=== PATIENT | female | born 1935 | race Caucasian/White ===

== ENCOUNTER 2022-01-22 03:26 | Emergency (ER) | payer MEDICARE, BC ==
[2022-01-22] MEDS ORDERED: Diphenoxylate HCl/Atropine Tablet ONE (04:02)
[2022-01-22 05:44] LABS: Bilirubin Neg (Negative); Blood, Urine 25 (Negative); Clarity Clear (Clear); Glucose, Urine (Dipstick) Normal (Negative); Ketone, Urine Negative (Negative); Leukocyte Negative (Negative); Nitrite Negative (Negative); Protein, Urine (Dipstick) Negative (Neg-Trace); Urobilinogen Normal mg/dL (Less than 2)
[2022-01-22 06:00] LABS: RBC/HPF 0-3 HPF (0-3); Squamous Epithelial None Seen HPF (0-3); WBC/HPF 0-3 HPF (0-3)
[2022-01-22 06:01] LABS: Bacteria/HPF Rare-Few HPF (None Seen)
[2022-01-22 06:08] LABS: #Monocytes 0.5 10x3/uL (0.0-1.1); %Basophils 0.2 % (0.0-2.0); %Lymphocytes 13.6 % (18.0-47.0); %Monocytes 10.1 % (0.0-10.0); %Neutrophils 75.9 % (40.0-75.0); Hemoglobin 11.5 g/dL (12.0-15.5); Mean Corpuscular HGB CONC 33.5 g/dL (32.0-36.0); Mean Corpuscular Hemoglobin 29.9 pg (27.0-33.0); Mean Corpuscular Volume 89.1 fl (81.6-98.3); Mean Platelet Volume 10.4 fl (7.4-10.4); Platelet Count 143 10x3/uL (150-450); RBC Distribution Width 13.7 % (11.5-14.5); Red Blood Cell (RBC) Count 3.85 10x6/uL (3.90-5.03); White Blood Cell (WBC) Count 5.2 10x3/uL (3.5-10.5)
[2022-01-22 06:31] LABS: ALT (SGPT) 14 U/L (8-55); AST (SGOT) 25 U/L (5-34); Alkaline Phosphatase 58 U/L (40-110); Anion Gap 15 mmol/L (10-20); BUN (Urea Nitrogen) 17 mg/dL (9.8-20.1); Bilirubin, Total 0.6 mg/dL (0.2-1.2); Calc. Creatinine Clearance 0 mL/min (70-130); Calcium 8.8 mg/dL (7.8-10.44); Carbon Dioxide 29 mmol/L (23-31); Chloride 98 mmol/L (98-107); Estimated GFR 85; Globulin 2.2 g/dL (2.4-3.5); Glucose 102 mg/dL (83-110); Potassium 3.5 mmol/L (3.5-5.1); Protein, Total 6.2 g/dL (5.8-8.1); Sodium 138 mmol/L (136-145)
== END 2022-01-22 06:40 | disposition home or self-care (01) ==
LOC: CSHERS 03:26
DX: S70.02XA Contusion of left hip, initial encounter (principal); S70.01XA Contusion of right hip, initial encounter; R19.7 Diarrhea, unspecified; E03.9 Hypothyroidism, unspecified; K21.9 Gastro-esophageal reflux disease without esophagitis; I10 Essential (primary) hypertension; Z79.899 Other long term (current) drug therapy; W19.XXXA Unspecified fall, initial encounter
CPT/HCPCS: 36415; 51701; 72170; 80053; 81003; 81015; 85025; 87086

== ENCOUNTER 2022-01-27 09:03 | Inpatient (IN) | payer MEDICARE, BC ==
[2022-01-27 09:38] LABS: #Monocytes 0.5 10x3/uL (0.0-1.1); #Neutrophils 3.5 10x3/uL (1.5-8.4); %Basophils 0.2 % (0.0-2.0); %Eosinophils 0.3 % (0.0-6.0); %Lymphocytes 29.5 % (18.0-47.0); %Monocytes 8.2 % (0.0-10.0); %Neutrophils 61.5 % (40.0-75.0); Hemoglobin 11.4 g/dL (12.0-15.5); Mean Corpuscular HGB CONC 32.3 g/dL (32.0-36.0); Mean Corpuscular Hemoglobin 28.4 pg (27.0-33.0); Mean Corpuscular Volume 87.8 fl (81.6-98.3); Mean Platelet Volume 10.2 fl (7.4-10.4); Platelet Count 189 10x3/uL (150-450); RBC Distribution Width 13.2 % (11.5-14.5); Red Blood Cell (RBC) Count 4.02 10x6/uL (3.90-5.03); White Blood Cell (WBC) Count 5.7 10x3/uL (3.5-10.5)
[2022-01-27 09:45] LABS: PTT 24.8 sec (22.0-33.0); Prothrombin Time 10.6 sec (9.5-12.1)
[2022-01-27 09:54] LABS: Bilirubin Neg (Negative); Blood, Urine 50 (Negative); Clarity Cloudy (Clear); Glucose, Urine (Dipstick) Normal (Negative); Ketone, Urine Negative (Negative); Leukocyte 500 (Negative); Nitrite Positive (Negative); Protein, Urine (Dipstick) 30 mg/dl (Neg-Trace); Urobilinogen Normal mg/dL (Less than 2)
[2022-01-27 09:55] LABS: ALT (SGPT) 9 U/L (8-55); AST (SGOT) 20 U/L (5-34); Alkaline Phosphatase 57 U/L (40-110); Anion Gap 15 mmol/L (10-20); BUN (Urea Nitrogen) 17 mg/dL (9.8-20.1); Bilirubin, Total 0.9 mg/dL (0.2-1.2); CK (CPK) 33 U/L (29-168); Calc. Creatinine Clearance 0 mL/min (70-130); Carbon Dioxide 28 mmol/L (23-31); Chloride 98 mmol/L (98-107); Estimated GFR 75; Glucose 113 mg/dL (83-110); Magnesium 1.6 mg/dL (1.6-2.6); Potassium 3.2 mmol/L (3.5-5.1); Sodium 138 mmol/L (136-145)
[2022-01-27 10:02] LABS: WBC/HPF Greater Than 50 HPF (0-3)
[2022-01-27 10:03] LABS: Bacteria/HPF 4+ HPF (None Seen); Squamous Epithelial 0-3 HPF (0-3)
[2022-01-27] MEDS ORDERED: Diazepam 5 MG TAB ONE (10:09)
[2022-01-27] MEDS ORDERED: Ondansetron PF 4 MG/2 ML Vial ONE (10:10)
[2022-01-27] MEDS ORDERED: cefTRIAXone\\ROCEPHIN 1 GM VIAL ONE (10:51)
[2022-01-27] MEDS ORDERED: Ondansetron ODT 4 MG TAB PO PRN (12:23)
[2022-01-27] MEDS ORDERED: Ondansetron PF 4 MG/2 ML Vial IVP PRN (12:23)
[2022-01-27] MEDS ORDERED: Senokot S 8.6-50 MG TAB PO PRN (12:23)
[2022-01-27] MEDS ORDERED: Acetaminophen 325 MG TAB PO PRN (12:23)
[2022-01-27 12:44] LABS: Digoxin 0.55 ng/mL (0.8-2.0); Magnesium 1.6 mg/dL (1.6-2.6)
[2022-01-27] MEDS ORDERED: Potassium Chloride 20 MEQ TAB PO SCH ×2 (13:00→18:48)
[2022-01-27 13:43] VITALS: BMI 21.9
[2022-01-27] MEDS ORDERED: Magnesium 2 GM/50 ML(in water) 2 GM in Premix Bag 1 BAG IVPB SCH (14:17)
[2022-01-27 15:41] LABS: SARS-CoV-2 NAA Rapid Test DETECTED (NotDetected)
[2022-01-27 18:23] LABS: Magnesium 2.1 mg/dL (1.6-2.6); Potassium 3.2 mmol/L (3.5-5.1)
[2022-01-27] MEDS ORDERED: Apixaban 2.5 MG TAB PO SCH (21:00)
[2022-01-28 04:08] LABS: #Monocytes 0.6 10x3/uL (0.0-1.1); #Neutrophils 2.6 10x3/uL (1.5-8.4); %Basophils 0.2 % (0.0-2.0); %Eosinophils 0.7 % (0.0-6.0); %Lymphocytes 43.5 % (18.0-47.0); %Monocytes 10.7 % (0.0-10.0); %Neutrophils 44.6 % (40.0-75.0); Hemoglobin 11.6 g/dL (12.0-15.5); Mean Corpuscular Hemoglobin 29.7 pg (27.0-33.0); Mean Corpuscular Volume 87.2 fl (81.6-98.3); Mean Platelet Volume 10.4 fl (7.4-10.4); Platelet Count 173 10x3/uL (150-450); RBC Distribution Width 13.3 % (11.5-14.5); Red Blood Cell (RBC) Count 3.91 10x6/uL (3.90-5.03); White Blood Cell (WBC) Count 5.7 10x3/uL (3.5-10.5)
[2022-01-28 04:17] LABS: Anion Gap 12 mmol/L (10-20); BUN (Urea Nitrogen) 11 mg/dL (9.8-20.1); Calc. Creatinine Clearance 57 mL/min (70-130); Carbon Dioxide 32 mmol/L (23-31); Chloride 99 mmol/L (98-107); Estimated GFR 80; Glucose 90 mg/dL (83-110); Potassium 3.7 mmol/L (3.5-5.1); Sodium 139 mmol/L (136-145)
[2022-01-28] MEDS ORDERED: Polyethylene Glycol 3350 17 GM Packet PO PRN (07:51)
[2022-01-28] MEDS ORDERED: Simethicone Chewable 80 MG TAB PO PRN (07:54)
[2022-01-28] MEDS ORDERED: Digoxin 0.125 MG TAB PO SCH (09:00)
[2022-01-28] MEDS ORDERED: Apixaban 2.5 MG TAB PO SCH (09:00)
[2022-01-28] MEDS ORDERED: Levothyroxine Sodium 112 MCG TAB PO SCH (09:00)
[2022-01-28] MEDS ORDERED: Zinc Sulfate 220 MG CAP PO SCH (09:00)
[2022-01-28] MEDS ORDERED: Ascorbic Acid 500 mg Chewable Tablet PO SCH (09:00)
[2022-01-28] MEDS ORDERED: cefTRIAXone\\ROCEPHIN 1 GM in Sodium Chloride 0.9% 100 ML IVPB SCH (11:00)
[2022-01-28 12:15] VITALS: TEMP 97.6
[2022-01-28 14:01] VITALS: BP 144/66
[2022-01-29] MEDS ORDERED: Levothyroxine Sodium 112 MCG TAB PO SCH (06:00)
== END 2022-01-28 15:00 | disposition home or self-care (01) | DRG 689 ==
LOC: CSHERS 09:03 → CSHTELE 12:44
PROVIDERS: ADMIT Internal Medicine; ATTEND Internal Medicine
PROC: 8E0ZXY6 Isolation (ICD-10-PCS; principal; 2022-01-27)
DX: N30.00 Acute cystitis without hematuria (principal); U07.1 COVID-19; I48.20 Chronic atrial fibrillation, unspecified; E03.9 Hypothyroidism, unspecified; K21.9 Gastro-esophageal reflux disease without esophagitis; I10 Essential (primary) hypertension; F03.90 Unspecified dementia, unspecified severity, without behavioral disturbance, psychotic disturbance, mood disturbance, and anxiety; E87.6 Hypokalemia; D64.9 Anemia, unspecified; Z79.01 Long term (current) use of anticoagulants; Z79.899 Other long term (current) drug therapy; Z95.0 Presence of cardiac pacemaker
CPT/HCPCS: 51701; 70450; 71045; 74018; 80048; 80053; 80162; 81003; 81015; 82550; 83605; 83615; 83735; 84443; 84484; 85025; 85610; 85730; 86140; 86850; 86900; 86901; 87077; 87086; 87186; 93005; 94760; 96365; 96375; J0696; J2405; J3475; J3490; U0002

== ENCOUNTER 2022-01-31 05:04 | Inpatient (IN) | payer MEDICARE, BC ==
[2022-01-31] MEDS ORDERED: Morphine 2 MG/ML VIAL ONE (05:28)
[2022-01-31] MEDS ORDERED: Promethazine HCl 25 MG/ML VIAL ONE (05:28)
[2022-01-31] MEDS ORDERED: Pantoprazole 40 MG VIAL ONE ×2 (06:12→08:10)
[2022-01-31 06:33] LABS: ALT (SGPT) 12 U/L (8-55); AST (SGOT) 21 U/L (5-34); Alkaline Phosphatase 59 U/L (40-110); Anion Gap 18 mmol/L (10-20); BUN (Urea Nitrogen) 16 mg/dL (9.8-20.1); Bilirubin, Total 1.1 mg/dL (0.2-1.2); CK (CPK) 37 U/L (29-168); Calc. Creatinine Clearance 0 mL/min (70-130); Calcium 9.2 mg/dL (7.8-10.44); Carbon Dioxide 34 mmol/L (23-31); Chloride 93 mmol/L (98-107); Estimated GFR 85; Globulin 2.1 g/dL (2.4-3.5); Glucose 171 mg/dL (83-110); Protein, Total 6.1 g/dL (5.8-8.1); Sodium 142 mmol/L (136-145)
[2022-01-31 06:35] LABS: Hemoglobin 12.2 g/dL (12.0-15.5); Mean Corpuscular HGB CONC 33.6 g/dL (32.0-36.0); Mean Corpuscular Hemoglobin 29.3 pg (27.0-33.0); Mean Corpuscular Volume 87.1 fl (81.6-98.3); Platelet Count 222 10x3/uL (150-450); Red Blood Cell (RBC) Count 4.17 10x6/uL (3.90-5.03); White Blood Cell (WBC) Count 6.9 10x3/uL (3.5-10.5)
[2022-01-31 06:43] LABS: Potassium 2.9 mmol/L (3.5-5.1)
[2022-01-31 06:45] LABS: Lipase 1145 U/L (8-78)
[2022-01-31] MEDS ORDERED: NS 0.9% w/ 40 MEQ KCL 1,000 ML IV ONE (06:48)
[2022-01-31 07:10] LABS: Digoxin 0.44 ng/mL (0.8-2.0); MDiff Complete? YES
[2022-01-31 07:20] LABS: Bilirubin Neg (Negative); Blood, Urine Negative (Negative); Clarity Slightly Cloudy (Clear); Glucose, Urine (Dipstick) Normal (Negative); Ketone, Urine 15 mg/dL (Negative); Leukocyte Negative (Negative); Nitrite Negative (Negative); Protein, Urine (Dipstick) 30 mg/dl (Neg-Trace); Urobilinogen Normal mg/dL (Less than 2)
[2022-01-31] MEDS ORDERED: Ondansetron PF 4 MG/2 ML Vial IVP PRN (07:36)
[2022-01-31 07:38] LABS: RBC/HPF 0-3 HPF (0-3); Squamous Epithelial 0-3 HPF (0-3); WBC/HPF 0-3 HPF (0-3)
[2022-01-31 07:39] LABS: Bacteria/HPF Rare-Few HPF (None Seen)
[2022-01-31 07:42] LABS: Band 2 % (5-11); Lymphocytes 7 % (21-51); Monocytes 2 % (0-10); Neutrophil 89 % (42-75)
[2022-01-31 07:43] LABS: Platelet Morphology Comment Appears Adequate; RBC Morphology Normal
[2022-01-31] MEDS: Digoxin 0.125 MG TAB PO SCH ×2 (11:04→19:45)
[2022-01-31] MEDS: Lactated Ringer's 1,000 ML IV SCH ×2 (12:37→21:57)
[2022-01-31] MEDS: Levothyroxine Sodium 112 MCG TAB PO SCH (12:37)
[2022-01-31] MEDS: Morphine 2 MG/ML VIAL SLOW IVP PRN ×2 (12:53→19:55)
[2022-01-31 13:36] LABS: Lactic Acid 2.1 mmol/L (0.5-2.2)
[2022-01-31] MEDS ORDERED: Iopamidol 300 61% 100 ML VIAL FS ONE (14:35)
[2022-01-31] MEDS: Pantoprazole 80 MG, Admixture Fee 1 EACH in Sodium Chloride 0.9% 100 ML IVPB SCH (16:37)
[2022-01-31 20:11] LABS: Hemoglobin 11.2 g/dL (12.0-15.5)
[2022-01-31 20:19] LABS: Anion Gap 15 mmol/L (10-20); Carbon Dioxide 33 mmol/L (23-31); Chloride 99 mmol/L (98-107); Potassium 3.3 mmol/L (3.5-5.1); Sodium 144 mmol/L (136-145)
[2022-01-31 20:58] LABS: Magnesium 1.8 mg/dL (1.6-2.6)
[2022-01-31] MEDS ORDERED: Electrolyte Replacement Protocol FS PRN (21:09)
[2022-01-31] MEDS ORDERED: Potassium Chloride 20 MEQ TAB PO SCH (21:30)
[2022-01-31] MEDS ORDERED: Magnesium 2 GM/50 ML(in water) 2 GM in Premix Bag 1 BAG IVPB SCH (21:30)
[2022-01-31] MEDS: Potassium Chloride 20 MEQ in Premix Bag 1 BAG IVPB SCH (23:06)
[2022-02-01] MEDS: Pantoprazole 80 MG, Admixture Fee 1 EACH in Sodium Chloride 0.9% 100 ML IVPB SCH ×3 (01:11→22:18)
[2022-02-01] MEDS: Potassium Chloride 20 MEQ in Premix Bag 1 BAG IVPB SCH ×3 (01:11→15:23)
[2022-02-01 04:28] LABS: Anion Gap 12 mmol/L (10-20); BUN (Urea Nitrogen) 13 mg/dL (9.8-20.1); Calc. Creatinine Clearance 84 mL/min (70-130); Calcium 8.6 mg/dL (7.8-10.44); Carbon Dioxide 31 mmol/L (23-31); Chloride 102 mmol/L (98-107); Estimated GFR 88; Glucose 101 mg/dL (83-110); Magnesium 2.3 mg/dL (1.6-2.6); Potassium 3.5 mmol/L (3.5-5.1); Sodium 141 mmol/L (136-145)
[2022-02-01 04:32] LABS: #Neutrophils 8.7 10x3/uL (1.5-8.4); %Basophils 0.3 % (0.0-2.0); %Eosinophils 0.3 % (0.0-6.0); %Lymphocytes 16.4 % (18.0-47.0); %Monocytes 8.5 % (0.0-10.0); Mean Corpuscular HGB CONC 32.5 g/dL (32.0-36.0); Mean Corpuscular Hemoglobin 29.1 pg (27.0-33.0); Mean Corpuscular Volume 89.4 fl (81.6-98.3); Mean Platelet Volume 9.9 fl (7.4-10.4); Platelet Count 211 10x3/uL (150-450); RBC Distribution Width 13.2 % (11.5-14.5); Red Blood Cell (RBC) Count 3.78 10x6/uL (3.90-5.03); White Blood Cell (WBC) Count 11.7 10x3/uL (3.5-10.5)
[2022-02-01] MEDS: Lactated Ringer's 1,000 ML IV SCH ×3 (07:32→23:14)
[2022-02-01] MEDS: Morphine 2 MG/ML VIAL SLOW IVP PRN ×3 (07:45→20:10)
[2022-02-01] MEDS ORDERED: CEFAZOLIN 2 GM in Sodium Chloride 0.9% 100 ML IVPB SCH (08:30)
[2022-02-01 09:33] LABS: Potassium 3.5 mmol/L (3.5-5.1)
[2022-02-01] MEDS ORDERED: Bupivacaine PF 0.5% 30 ML VIAL ONE (11:14)
[2022-02-01] MEDS ORDERED: PROPOFOL 20 ML ONE (11:45)
[2022-02-01] MEDS ORDERED: Dexamethasone 4 mg/ml Vial ONE (11:46)
[2022-02-01] MEDS ORDERED: Lidocaine 1% PF 5 ML VIAL ONE (11:46)
[2022-02-01] MEDS ORDERED: ePHEDrine Sulfate 50 MG/10 ML VIAL ONE (11:46)
[2022-02-01] MEDS ORDERED: Rocuronium Bromide 10 MG/ML (10ML VIAL) ONE (11:46)
[2022-02-01] MEDS ORDERED: Ondansetron PF 4 MG/2 ML Vial ONE (11:46)
[2022-02-01] MEDS ORDERED: Fentanyl 100 MCG/2 ML VIAL ONE (11:46)
[2022-02-01] MEDS ORDERED: PHENYLEPHRINE-NS 100 MCG/ML 10 ML SYRINGE ONE (11:46)
[2022-02-01] MEDS ORDERED: Succinylcholine 200 MG/10 ml SYRINGE FS ONE (11:46)
[2022-02-01] MEDS ORDERED: SUGAMMADEX SODIUM 200 MG/2 ML VIAL ONE (11:49)
[2022-02-01] MEDS ORDERED: CEFAZOLIN 2 GM VIAL IVPB SCH (13:15)
[2022-02-01] MEDS: Cefepime 2 GM in Sodium Chloride 0.9% 100 ML IVPB SCH ×2 (17:19→23:14)
[2022-02-01] MEDS: Levothyroxine Sodium 112 MCG TAB PO SCH (19:34)
[2022-02-01] MEDS: Digoxin 0.125 MG TAB PO SCH (19:34)
[2022-02-02] MEDS: Morphine 2 MG/ML VIAL SLOW IVP PRN (01:14)
[2022-02-02 04:26] LABS: Hemoglobin 10.5 g/dL (12.0-15.5); Mean Corpuscular HGB CONC 31.8 g/dL (32.0-36.0); Mean Corpuscular Hemoglobin 29.2 pg (27.0-33.0); Mean Corpuscular Volume 91.9 fl (81.6-98.3); Mean Platelet Volume 10.3 fl (7.4-10.4); Platelet Count 214 10x3/uL (150-450); RBC Distribution Width 13.1 % (11.5-14.5); Red Blood Cell (RBC) Count 3.59 10x6/uL (3.90-5.03); White Blood Cell (WBC) Count 11.8 10x3/uL (3.5-10.5)
[2022-02-02 04:33] LABS: Anion Gap 12 mmol/L (10-20); BUN (Urea Nitrogen) 16 mg/dL (9.8-20.1); Calc. Creatinine Clearance 80 mL/min (70-130); Calcium 8.6 mg/dL (7.8-10.44); Carbon Dioxide 30 mmol/L (23-31); Chloride 103 mmol/L (98-107); Estimated GFR 87; Glucose 98 mg/dL (83-110); Potassium 3.9 mmol/L (3.5-5.1); Sodium 141 mmol/L (136-145)
[2022-02-02] MEDS: Cefepime 2 GM in Sodium Chloride 0.9% 100 ML IVPB SCH ×3 (05:33→17:46)
[2022-02-02] MEDS: Morphine 4 MG/ML VIAL SLOW IVP PRN ×4 (06:19→17:59)
[2022-02-02] MEDS: Lactated Ringer's 1,000 ML IV SCH ×2 (09:47→20:10)
[2022-02-02] MEDS: Pantoprazole 80 MG, Admixture Fee 1 EACH in Sodium Chloride 0.9% 100 ML IVPB SCH ×2 (11:41→20:10)
[2022-02-02] MEDS: Digoxin 0.125 MG TAB PO SCH (19:31)
[2022-02-02] MEDS: Levothyroxine Sodium 112 MCG TAB PO SCH (19:31)
[2022-02-02] MEDS ORDERED: Metoprolol Tartrate 5 MG/5 ML VIAL ONE (20:27)
[2022-02-02] MEDS ORDERED: Metoprolol Tartrate 5 MG/5 ML VIAL IVP SCH (20:30)
[2022-02-03] MEDS: Morphine 4 MG/ML VIAL SLOW IVP PRN ×2 (04:48→09:00)
[2022-02-03] MEDS: Digoxin 0.125 MG TAB PO SCH (09:03)
[2022-02-03] MEDS: Levothyroxine Sodium 112 MCG TAB PO SCH (09:05)
[2022-02-03] MEDS: Lactated Ringer's 1,000 ML IV SCH ×2 (09:05→09:09)
[2022-02-03] MEDS ORDERED: Metoprolol Tartrate 5 MG/5 ML VIAL IVP SCH (10:34)
[2022-02-03] MEDS: Metoprolol Tartrate 25 MG TAB PO SCH (20:05)
[2022-02-03] MEDS ORDERED: Pantoprazole 40 MG VIAL IVP SCH (21:00)
[2022-02-04 05:11] LABS: Hemoglobin 10.4 g/dL (12.0-15.5); Mean Corpuscular HGB CONC 33.3 g/dL (32.0-36.0); Mean Corpuscular Hemoglobin 29.3 pg (27.0-33.0); Mean Corpuscular Volume 87.9 fl (81.6-98.3); Mean Platelet Volume 10.2 fl (7.4-10.4); Platelet Count 218 10x3/uL (150-450); RBC Distribution Width 12.7 % (11.5-14.5); Red Blood Cell (RBC) Count 3.55 10x6/uL (3.90-5.03); White Blood Cell (WBC) Count 8.2 10x3/uL (3.5-10.5)
[2022-02-04 05:24] LABS: ALT (SGPT) 6 U/L (8-55); AST (SGOT) 15 U/L (5-34); Alkaline Phosphatase 50 U/L (40-110); Anion Gap 14 mmol/L (10-20); BUN (Urea Nitrogen) 16 mg/dL (9.8-20.1); Calc. Creatinine Clearance 84 mL/min (70-130); Calcium 8.2 mg/dL (7.8-10.44); Carbon Dioxide 26 mmol/L (23-31); Chloride 102 mmol/L (98-107); Estimated GFR 88; Globulin 1.6 g/dL (2.4-3.5); Glucose 65 mg/dL (83-110); Potassium 3.4 mmol/L (3.5-5.1); Protein, Total 4.6 g/dL (5.8-8.1); Sodium 139 mmol/L (136-145)
[2022-02-04 05:27] LABS: MDiff Complete? YES; Manual Diff?? YES
[2022-02-04 05:41] LABS: Lymphocytes 21 % (21-51); Neutrophil 75 % (42-75); Reactive Lymphocytes 4 % (0-10)
[2022-02-04 05:42] LABS: Platelet Morphology Comment Appears Adequate
[2022-02-04] MEDS ORDERED: Potassium Chloride 20 MEQ TAB PO SCH (06:15)
[2022-02-04] MEDS: Pantoprazole 80 MG, Admixture Fee 1 EACH in Sodium Chloride 0.9% 100 ML IVPB SCH (08:09)
[2022-02-04] MEDS: Metoprolol Tartrate 25 MG TAB PO SCH ×2 (08:52→21:15)
[2022-02-04] MEDS: Levothyroxine Sodium 112 MCG TAB PO SCH (08:52)
[2022-02-04] MEDS: Digoxin 0.25 MG TAB PO SCH (08:55)
[2022-02-04] MEDS: Morphine 2 MG/ML VIAL SLOW IVP PRN (09:05)
[2022-02-04 10:18] LABS: Potassium 3.4 mmol/L (3.5-5.1)
[2022-02-04] MEDS ORDERED: Potassium Chloride 20 MEQ in Premix Bag 1 BAG IVPB SCH (18:00)
[2022-02-05] MEDS: Morphine 2 MG/ML VIAL SLOW IVP PRN ×3 (00:42→20:54)
[2022-02-05] MEDS: Metoprolol Tartrate 25 MG TAB PO SCH ×2 (09:25→20:14)
[2022-02-05] MEDS: Digoxin 0.25 MG TAB PO SCH (09:25)
[2022-02-05] MEDS: Levothyroxine Sodium 112 MCG TAB PO SCH (09:25)
[2022-02-05] MEDS: Apixaban 2.5 MG TAB PO SCH (20:14)
[2022-02-06] MEDS ORDERED: Levothyroxine Sodium 112 MCG TAB PO SCH (06:30)
[2022-02-06] MEDS: Metoprolol Tartrate 25 MG TAB PO SCH (09:01)
[2022-02-06] MEDS: Apixaban 2.5 MG TAB PO SCH ×2 (09:01→20:29)
[2022-02-06] MEDS: Digoxin 0.25 MG TAB PO SCH (09:01)
[2022-02-06] MEDS: Acetaminophen 325 MG TAB PO PRN (09:02)
[2022-02-06 09:26] LABS: Anion Gap 10 mmol/L (10-20); BUN (Urea Nitrogen) 9 mg/dL (9.8-20.1); Calc. Creatinine Clearance 72 mL/min (70-130); Calcium 8.7 mg/dL (7.8-10.44); Carbon Dioxide 33 mmol/L (23-31); Chloride 100 mmol/L (98-107); Estimated GFR 89; Glucose 123 mg/dL (83-110); Potassium 3.7 mmol/L (3.5-5.1); Sodium 139 mmol/L (136-145)
[2022-02-06] MEDS ORDERED: Metoprolol Tartrate 25 MG TAB PO SCH (21:00)
[2022-02-07] MEDS: Acetaminophen 325 MG TAB PO PRN ×2 (00:05→16:19)
[2022-02-07] MEDS: Levothyroxine Sodium 112 MCG TAB PO SCH (05:25)
[2022-02-07 08:02] LABS: Anion Gap 12 mmol/L (10-20); BUN (Urea Nitrogen) 8 mg/dL (9.8-20.1); Calc. Creatinine Clearance 0 mL/min (70-130); Calcium 8.8 mg/dL (7.8-10.44); Carbon Dioxide 30 mmol/L (23-31); Chloride 103 mmol/L (98-107); Estimated GFR 90; Glucose 99 mg/dL (83-110); Potassium 3.6 mmol/L (3.5-5.1); Sodium 141 mmol/L (136-145)
[2022-02-07 08:04] LABS: Digoxin 0.46 ng/mL (0.8-2.0)
[2022-02-07] MEDS: Apixaban 2.5 MG TAB PO SCH ×2 (09:44→20:15)
[2022-02-07] MEDS: Metoprolol Tartrate 25 MG TAB PO SCH ×2 (09:44→20:14)
[2022-02-07] MEDS: HYDROcodone/Acetaminophen 5/325 mg Tablet PO PRN (11:21)
[2022-02-07] MEDS ORDERED: Losartan Potassium 50 MG TAB PO SCH (14:30)
[2022-02-07] MEDS ORDERED: Hydrochlorothiazide 25 MG TAB PO SCH (14:30)
[2022-02-07] MEDS ORDERED: Digoxin 0.25 MG TAB PO SCH (14:30)
[2022-02-08] MEDS: Levothyroxine Sodium 112 MCG TAB PO SCH (06:14)
[2022-02-08] MEDS: Acetaminophen 325 MG TAB PO PRN ×2 (06:28→12:55)
[2022-02-08] MEDS: Losartan Potassium 50 MG TAB PO SCH (10:27)
[2022-02-08] MEDS: Metoprolol Tartrate 25 MG TAB PO SCH ×2 (10:27→20:58)
[2022-02-08] MEDS: Hydrochlorothiazide 25 MG TAB PO SCH (10:28)
[2022-02-08] MEDS: Apixaban 2.5 MG TAB PO SCH ×2 (10:28→20:58)
[2022-02-08] MEDS: Digoxin 0.25 MG TAB PO SCH (10:29)
[2022-02-08] MEDS: Meclizine HCl 12.5 MG TAB PO PRN (12:55)
[2022-02-09] MEDS: Levothyroxine Sodium 112 MCG TAB PO SCH (05:10)
[2022-02-09] MEDS: Acetaminophen 325 MG TAB PO PRN ×2 (09:39→15:51)
[2022-02-09] MEDS: Hydrochlorothiazide 25 MG TAB PO SCH (09:40)
[2022-02-09] MEDS: Digoxin 0.25 MG TAB PO SCH (09:41)
[2022-02-09] MEDS: Metoprolol Tartrate 25 MG TAB PO SCH ×2 (09:41→22:02)
[2022-02-09] MEDS: Losartan Potassium 50 MG TAB PO SCH (09:41)
[2022-02-09] MEDS: Meclizine HCl 12.5 MG TAB PO PRN ×2 (09:42→22:04)
[2022-02-09] MEDS: Apixaban 2.5 MG TAB PO SCH ×2 (09:42→22:04)
[2022-02-09] MEDS: HYDROcodone/Acetaminophen 5/325 mg Tablet PO PRN (22:03)
[2022-02-10 04:45] LABS: #Basophils 0.1 10x3/uL (0.0-0.2); #Eosinphils 0.4 10x3/uL (0.0-0.5); #Monocytes 0.9 10x3/uL (0.0-1.1); #Neutrophils 6.4 10x3/uL (1.5-8.4); %Basophils 0.6 % (0.0-2.0); %Eosinophils 3.7 % (0.0-6.0); %Lymphocytes 22.2 % (18.0-47.0); %Monocytes 8.6 % (0.0-10.0); %Neutrophils 64.5 % (40.0-75.0); Hemoglobin 11.8 g/dL (12.0-15.5); Mean Corpuscular HGB CONC 33.5 g/dL (32.0-36.0); Mean Corpuscular Hemoglobin 29.3 pg (27.0-33.0); Mean Corpuscular Volume 87.3 fl (81.6-98.3); Mean Platelet Volume 10.1 fl (7.4-10.4); Platelet Count 291 10x3/uL (150-450); RBC Distribution Width 13.3 % (11.5-14.5); Red Blood Cell (RBC) Count 4.03 10x6/uL (3.90-5.03); White Blood Cell (WBC) Count 9.8 10x3/uL (3.5-10.5)
[2022-02-10 05:00] LABS: Anion Gap 12 mmol/L (10-20); BUN (Urea Nitrogen) 10 mg/dL (9.8-20.1); Calc. Creatinine Clearance 69 mL/min (70-130); Calcium 8.9 mg/dL (7.8-10.44); Carbon Dioxide 27 mmol/L (23-31); Chloride 102 mmol/L (98-107); Estimated GFR 88; Glucose 94 mg/dL (83-110); Potassium 3.3 mmol/L (3.5-5.1); Sodium 138 mmol/L (136-145)
[2022-02-10] MEDS: Levothyroxine Sodium 112 MCG TAB PO SCH (06:29)
[2022-02-10] MEDS ORDERED: Potassium Chloride 20 MEQ TAB PO SCH (08:00)
[2022-02-10] MEDS: Digoxin 0.25 MG TAB PO SCH (09:29)
[2022-02-10] MEDS: Losartan Potassium 50 MG TAB PO SCH (09:29)
[2022-02-10] MEDS: Metoprolol Tartrate 25 MG TAB PO SCH ×2 (09:29→20:29)
[2022-02-10] MEDS: Hydrochlorothiazide 25 MG TAB PO SCH (09:30)
[2022-02-10] MEDS: Apixaban 2.5 MG TAB PO SCH ×2 (09:30→20:30)
[2022-02-10 12:14] VITALS: BMI 22.4
[2022-02-11] MEDS: Levothyroxine Sodium 112 MCG TAB PO SCH (06:16)
[2022-02-11] MEDS: Digoxin 0.25 MG TAB PO SCH (09:48)
[2022-02-11] MEDS: Hydrochlorothiazide 25 MG TAB PO SCH (09:49)
[2022-02-11] MEDS: Metoprolol Tartrate 25 MG TAB PO SCH ×2 (09:49→21:20)
[2022-02-11] MEDS: Apixaban 2.5 MG TAB PO SCH ×2 (09:49→21:21)
[2022-02-11] MEDS: Losartan Potassium 50 MG TAB PO SCH (09:49)
[2022-02-11] MEDS: Acetaminophen 325 MG TAB PO PRN (21:20)
[2022-02-12] MEDS: HYDROcodone/Acetaminophen 5/325 mg Tablet PO PRN (03:18)
[2022-02-12] MEDS: Levothyroxine Sodium 112 MCG TAB PO SCH (06:56)
[2022-02-12] MEDS: Digoxin 0.25 MG TAB PO SCH (09:24)
[2022-02-12] MEDS: Hydrochlorothiazide 25 MG TAB PO SCH (09:25)
[2022-02-12] MEDS: Metoprolol Tartrate 25 MG TAB PO SCH (09:25)
[2022-02-12] MEDS: Losartan Potassium 50 MG TAB PO SCH (09:25)
[2022-02-12] MEDS: Apixaban 2.5 MG TAB PO SCH (09:25)
[2022-02-12 12:35] VITALS: BP 121/58; TEMP 97
== END 2022-02-12 14:12 | DRG 353 ==
LOC: CSHERS 05:04 → SUATTDRO 05:04 → CSHICU 09:52 → CSHTELE 02-04 13:45
PROVIDERS: ADMIT Internal Medicine; ATTEND Hospitalist
PROC: 0D9670Z Drainage of Stomach with Drainage Device, Via Natural or Artificial Opening (ICD-10-PCS; 2022-01-31)
PROC: 8E0ZXY6 Isolation (ICD-10-PCS; 2022-01-31)
PROC: 0WUF0JZ Supplement Abdominal Wall with Synthetic Substitute, Open Approach (ICD-10-PCS; principal; 2022-02-01)
DX: K43.6 Other and unspecified ventral hernia with obstruction, without gangrene (principal); U07.1 COVID-19; I48.20 Chronic atrial fibrillation, unspecified; I10 Essential (primary) hypertension; E03.9 Hypothyroidism, unspecified; K21.9 Gastro-esophageal reflux disease without esophagitis; F03.90 Unspecified dementia, unspecified severity, without behavioral disturbance, psychotic disturbance, mood disturbance, and anxiety; E87.6 Hypokalemia; I48.0 Paroxysmal atrial fibrillation; I25.10 Atherosclerotic heart disease of native coronary artery without angina pectoris; H81.399 Other peripheral vertigo, unspecified ear; Z79.01 Long term (current) use of anticoagulants; Z79.899 Other long term (current) drug therapy; Z98.890 Other specified postprocedural states
CPT/HCPCS: 36415; 51702; 71045; 74176; 74177; 80048; 80053; 80162; 81003; 81015; 82550; 83605; 83690; 83735; 84132; 84484; 85025; 85027; 86850; 86900; 86901; 93005; 94760; 96365; 96375; 96376; C1713; C9113; J0690; J0692; J1100; J2270; J2405; J2550; J2704; J3010; J3475; J3480; J3490; J7120; Q9967; S0020

== ENCOUNTER 2022-03-26 12:03 | Emergency (ER) | payer MEDICARE, BC | END 2022-03-26 14:35 | disposition home or self-care (01) | LOC: CSHERS 12:03 | DX: S93.402A Sprain of unspecified ligament of left ankle, initial encounter (principal); M25.552 Pain in left hip; R07.81 Pleurodynia; K21.9 Gastro-esophageal reflux disease without esophagitis; I10 Essential (primary) hypertension; E03.9 Hypothyroidism, unspecified; W05.0XXA Fall from non-moving wheelchair, initial encounter | CPT/HCPCS: 70450; 72125 ==

== ENCOUNTER 2023-09-30 12:28 | Emergency (ER) | payer MEDICARE, BC ==
[2023-09-30 13:12] LABS: #Eosinphils 0.1 10x3/uL (0.0-0.5); #Monocytes 0.5 10x3/uL (0.0-1.1); %Basophils 0.3 % (0.0-2.0); %Lymphocytes 34.6 % (18.0-47.0); %Monocytes 6.1 % (0.0-10.0); %Neutrophils 57.7 % (40.0-75.0); Hematocrit 35.8 % (34.9-44.5); Hemoglobin 11.9 g/dL (12.0-15.5); Mean Corpuscular HGB CONC 33.2 g/dL (32.0-36.0); Mean Corpuscular Hemoglobin 30.3 pg (27.0-33.0); Mean Corpuscular Volume 91.1 fl (81.6-98.3); Mean Platelet Volume 10.3 fl (7.4-10.4); Platelet Count 230 10x3/uL (150-450); RBC Distribution Width 13.2 % (11.5-14.5); Red Blood Cell (RBC) Count 3.93 10x6/uL (3.90-5.03); White Blood Cell (WBC) Count 8.7 10x3/uL (3.5-10.5)
[2023-09-30 13:26] LABS: ALT (SGPT) 9 U/L (8-55); AST (SGOT) 16 U/L (5-34); Albumin 4.3 g/dL (3.4-4.8); Alkaline Phosphatase 71 U/L (40-110); Anion Gap 12 mmol/L (10-20); BUN (Urea Nitrogen) 19 mg/dL (9.8-20.1); Bilirubin, Total 0.8 mg/dL (0.2-1.2); Calc. Creatinine Clearance 0 mL/min (70-130); Calcium 9.5 mg/dL (7.8-10.44); Carbon Dioxide 29 mmol/L (23-31); Chloride 102 mmol/L (98-107); Estimated GFR 70; Globulin 2.1 g/dL (2.4-3.5); Glucose 101 mg/dL (83-110); Potassium 4.4 mmol/L (3.5-5.1); Protein, Total 6.4 g/dL (5.8-8.1); Sodium 139 mmol/L (136-145)
[2023-09-30 13:31] LABS: Troponin I Less than 0.010 ng/mL (< 0.028)
[2023-09-30 13:45] LABS: Bilirubin Neg (Negative); Blood, Urine 50 (Negative); Clarity Clear (Clear); Glucose, Urine (Dipstick) Normal (Negative); Ketone, Urine Negative (Negative); Leukocyte Negative (Negative); Nitrite Negative (Negative); Protein, Urine (Dipstick) Negative (Neg-Trace); Specific Gravity, Urine 1.005 (1.005-1.030)
[2023-09-30 14:59] LABS: CAUTI Indications for Culture Alt mental st,lethar; WBC/HPF 0-3 HPF (0-3)
[2023-09-30 15:00] LABS: Bacteria/HPF Rare-Few HPF (None Seen); Renal Epithelial 0-3 HPF (None Seen); Squamous Epithelial None Seen HPF (0-3)
[2023-09-30 15:01] LABS: Urine Culture Reflex No No
== END 2023-09-30 15:30 | disposition home or self-care (01) ==
LOC: CSHERS 12:28
DX: H93.11 Tinnitus, right ear (principal); R41.0 Disorientation, unspecified; I10 Essential (primary) hypertension; I48.91 Unspecified atrial fibrillation; E03.9 Hypothyroidism, unspecified; K21.9 Gastro-esophageal reflux disease without esophagitis; Z79.899 Other long term (current) drug therapy; Z79.01 Long term (current) use of anticoagulants
CPT/HCPCS: 36415; 51701; 70450; 71045; 80053; 81001; 84484; 85025; 93005

== ENCOUNTER 2023-12-07 11:18 | Emergency (ER) | payer MEDICARE, BC ==
[2023-12-07 12:25] LABS: #Basophils 0.03 10x3/uL (0.0-0.2); #Eosinphils 0.09 10x3/uL (0.0-0.5); #Monocytes 0.48 10x3/uL (0.0-1.1); #Neutrophils 5.19 10x3/uL (1.5-8.4); %Basophils 0.4 % (0.0-2.0); %Eosinophils 1.3 % (0.0-6.0); %Lymphocytes 14.8 % (18.0-47.0); %Neutrophils 76.4 % (40.0-75.0); Hematocrit 32.3 % (34.9-44.5); Hemoglobin 10.6 g/dL (12.0-15.5); Mean Corpuscular HGB CONC 32.8 g/dL (32.0-36.0); Mean Corpuscular Volume 91.5 fl (81.6-98.3); Mean Platelet Volume 9.9 fl (7.4-10.4); Platelet Count 131 10x3/uL (150-450); RBC Distribution Width 14.1 % (11.5-14.5); Red Blood Cell (RBC) Count 3.53 10x6/uL (3.90-5.03); White Blood Cell (WBC) Count 6.8 10x3/uL (3.5-10.5)
[2023-12-07 12:52] LABS: ALT (SGPT) 15 U/L (8-55); AST (SGOT) 16 U/L (5-34); Alkaline Phosphatase 69 U/L (40-110); Anion Gap 13 mmol/L (10-20); BUN (Urea Nitrogen) 14 mg/dL (9.8-20.1); Bilirubin, Total 0.9 mg/dL (0.2-1.2); Calc. Creatinine Clearance 0 mL/min (70-130); Calcium 8.7 mg/dL (7.8-10.44); Carbon Dioxide 25 mmol/L (23-31); Chloride 108 mmol/L (98-107); Estimated GFR 85; Globulin 1.8 g/dL (2.4-3.5); Glucose 118 mg/dL (83-110); Magnesium 1.6 mg/dL (1.6-2.6); Protein, Total 4.8 g/dL (5.8-8.1); Sodium 142 mmol/L (136-145)
[2023-12-07 12:53] LABS: Troponin I 0.036 ng/mL (< 0.028)
[2023-12-07 12:58] LABS: Bilirubin Neg (Negative); Blood, Urine 50 (Negative); Clarity Clear (Clear); Glucose, Urine (Dipstick) Normal (Negative); Ketone, Urine Negative (Negative); Leukocyte 25 (Negative); Nitrite Negative (Negative); Protein, Urine (Dipstick) 15 mg/dl (Neg-Trace); Specific Gravity, Urine 1.015 (1.005-1.030)
[2023-12-07 13:44] LABS: Bacteria/HPF None Seen HPF (None Seen); CAUTI Indications for Culture Pelvic or flank pain; RBC/HPF 0-3 HPF (0-3); Renal Epithelial 0-3 HPF (None Seen); Squamous Epithelial 0-3 HPF (0-3); WBC/HPF 0-3 HPF (0-3)
[2023-12-07 13:45] LABS: Urine Culture Reflex No No
[2023-12-07] MEDS ORDERED: Dexamethasone 4 mg/ml Vial ONE (14:19)
[2023-12-07] MEDS ORDERED: levETIRAcetam 500 MG (5 mL) VIAL ONE (14:19)
== END 2023-12-07 15:53 | disposition short-term general hospital (02) ==
LOC: CSHERS 11:18
DX: C71.9 Malignant neoplasm of brain, unspecified (principal); G93.6 Cerebral edema; I10 Essential (primary) hypertension
CPT/HCPCS: 70450; 71045; 80053; 81001; 83605; 83735; 84443; 84484; 85025; 93005; J1100; J1953